=== PATIENT | female | born 2000 | race African-American/Black ===

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

== ENCOUNTER 2019-04-21 17:57 | Emergency (ER) | payer MEDICAID ==
[~2019-04-21] VITALS: Ht 162.6 cm; Wt 84.0 kg
[2019-04-22 04:02] VITALS: BP 110/65
== END 2019-04-22 04:03 | disposition home or self-care (01) ==
LOC: ER 17:57
DX: H10.9 Unspecified conjunctivitis (principal)
CPT/HCPCS: 81025; 99283